=== PATIENT | male | born 1975 | race Two or more races ===

== ENCOUNTER 2019-07-27 14:43 | Emergency (ER) | payer OTHER, SELFPAY ==
--- NOTE | ~2019-07-27 | XR_ITS ---
EXAMINATION: XR lumbar spine 2-3V DATE: 07/27/2019 15:19 INDICATION: Low back pain. TECHNIQUE: 3 views of lumbar spine were obtained. COMPARISON: None. FINDINGS: There is 3 degrees dextrocurvature of lumbar spine. Vertebral body heights are normal. Ther e is mildly decreased disc height at L4-L5. There are endplate osteophytes at most levels. The facet joints are unremarkable. IMPRESSION: 1. Mild lumbar spondylosis. Reviewed, dictated and finalized at location A. IMPRESSION: 1. Mild lumbar spondylosis.
[2019-07-27 14:58] VITALS: BP 126/73; PULSE 78; RESP 20; TEMP 37; O2SAT 100
--- NOTE | 2019-07-27 15:22 | ED.BACK ---
HPI - Back Pain/Injury General Chief Complaint: Back Pain/Injury Stated Complaint: back pain Time Seen by Provider: 07/27/19 15:22 Source: patient and RN notes reviewed History of Present Illness HPI Narrative: Patient is a 43-year-old male that presents the urgent care with complaints of low back pain radiating down the left leg. Patient states that he has chronic intermittent low back pain and has had sciatica in the past. 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 Denies any known injury or fall. Denies any known compression fractures. Patient states that he was putting sheets on the bed today and twisted wrong causing severe pain . Patient states that he typically takes ibuprofen [id number] and has not tolerated Flexeril well in the past. No other acute complaints. No acute distress noted. Patient had a plan of care. Related Data Home Medications Medication Instructions Recorded Confirmed levothyroxine 150 mcg PO DAILY 07/27/19 07/27/19 Allergies Allergy/AdvReac Type Severity Reaction Status Date / Time No Known Allergies Allergy Verified 07/27/19 14:56 Review of Systems Review of Systems: Narrative: CONSTITUTIONAL: Denies fever, chills, or sweats. EYES: Denies visual changes, redness, or discharge. ENT: Denies rhinorrhea, congestion, sore throat, or otalgia. CARDIOVASCULAR: Denies chest pain, palpitations, or edema. RESPIRATORY: Denies cough or dyspnea. GASTROINTESTINAL: Denies abdominal pain, nausea, vomiting, or diarrhea. GENITOURINARY: Denies dysuria or hematuria. SKIN: Denies rash or itching. MUSCULOSKELETAL: Reports of low back pain with radiation to the left leg NEUROLOGIC: Denies headache, numbness, or weakness. All other systems reviewed are negative, except as documented in HPI. PMFSH Comments At the time of my signature, I reviewed and agree with the nursing past medical, surgical, social, and family history. There is no relevant family history pertinent to the patient complaint. Exam Narrative: Exam Narrative: GENERAL: This is a well-nourished, well-developed patient, in no apparent distress. HEAD: normocephalic, atraumatic. EYES: PERRL. Sclera clear/white. Vision is grossly intact. EARS: External ears normal NOSE: External nose normal with no obvious nasal discharge, nares without redness, no rhinorrhea. THROAT: Mucous membranes moist NECK: Neck supple CARDIOVASCULAR: Regular rate and rhythm without murmurs, gallops, or rubs. RESPIRATORY: Clear to auscultation. Breath sounds equal bilaterally. No wheezes, rales, or rhonchi. SKIN: warm, intact with no suspicious lesions or rash, good texture and turgor. NEURO: awake, alert, and oriented to person, place and time. There were no obvious focal neurologic abnormalities. EXTREMITIES: No clubbing, cyanosis, or edema. BACK: Diffuse lumbar tenderness with point tenderness near L4, positive left SLE. Course Vital Signs Vital signs: Vital Signs Temperature 98.6 F 07/27/19 14:58 Pulse Rate 78 07/27/19 14:58 Respiratory Rate 20 07/27/19 14:58 Blood Pressure 126/73 07/27/19 14:58 Pulse Oximetry 100 07/27/19 14:58 Temperature 98.6 F 07/27/19 14:58 Pulse Rate 78 07/27/19 14:58 Respiratory Rate 20 07/27/19 14:58 Blood Pressure 126/73 07/27/19 14:58 Pulse Oximetry 100 07/27/19 14:58 Reviewed MDM - Back Pain/Injury MDM Narrative Medical decision making narrative: Reviewed x-ray results with the patient. He is aware that there is no obvious fracture or abnormality. Patient does have some mild lumbar spondylosis noted. Advised the patient to use ibuprofen as needed for pain. Do not take any other NSAIDs [id number] in conjunction with ibuprofen. May use ice and heat for 20-minute intervals for comfort. Complete steroid regimen as prescribed. Avoid lifting anything over 5 pounds until activity as tolerated as normal. If you develop any increase in p
== END 2019-07-27 15:49 | disposition home or self-care (01) ==
PROVIDERS: Emergency Provider Nurse Practitioner Family
DX: S39.012A Strain of muscle, fascia and tendon of lower back, initial encounter (principal); X50.9XXA Other and unspecified overexertion or strenuous movements or postures, initial encounter; M54.32 Sciatica, left side; E03.9 Hypothyroidism, unspecified
CPT/HCPCS: 72100; 99213; G0463